=== PATIENT | female | born 1980 | race Caucasian/White ===

== ENCOUNTER 2018-07-17 23:29 | Emergency (ER) | payer MEDICAID, OTHER ==
[2018-07-17 23:37] VITALS: BMI 23.9
[2018-07-18 01:30] LABS: BASO # 0.1 K/uL (0.0-0.2); BASO % 0.8 % (0.0-2.0); EOS # 0.1 K/uL (0.0-0.7); EOS % 1.6 % (0.0-4.0); HEMOGLOBIN 12.2 g/dL (11.0-16.0); LYMPH # 1.9 K/uL (1.0-4.3); LYMPH % 22.5 % (20.0-40.0); MEAN CELL VOLUME 93.3 fL (81.0-99.0); MEAN CORPUSCULAR HEMOGLOBIN 31.6 pg (27.0-31.0); MEAN CORPUSCULAR HGB CONC 33.8 g/dL (33.0-37.0); MEAN PLATELET VOLUME 9.2 fL (7.2-11.7); MONO # 0.8 K/uL (0.0-0.8); MONO % 9.2 % (0.0-10.0); NEUT # 5.6 K/uL (1.8-7.0); NEUT % 65.9 % (50.0-75.0); RBC 3.86 Mil/uL (3.80-5.20); RED CELL DISTRIBUTION WIDTH 13.4 % (11.5-14.5); WHITE BLOOD COUNT 8.5 K/uL (4.8-10.8)
[2018-07-18 01:30] LABS: SQUAMOUS EPITHIAL 3 /hpf (0-5); URINE BILIRUBIN NEGATIVE (NEGATIVE); URINE BLOOD 1+ (NEGATIVE); URINE CLARITY Clear (Clear); URINE COLOR Yellow (YELLOW); URINE GLUCOSE (UA) NORMAL (Normal); URINE LEUKOCYTE ESTERASE TRACE Leu/uL (Negative); URINE PROTEIN NEGATIVE (NEGATIVE); URINE UROBILINOGEN NORMAL mg/dL (0.2-1.0)
[2018-07-18 01:37] LABS: ALB/GLOB RATIO 1.3 (1.0-2.1); ALBUMIN 3.9 g/dL (3.5-5.0); ALT/SGPT 29 U/L (9-52); AST/SGOT 21 U/L (14-36); BLOOD UREA NITROGEN 20 mg/dL (7-17); GFR NON-AFRICAN AMERICAN > 60
[2018-07-18 01:42] LABS: BARBITURATES, UR NEGATIVE (NEGATIVE); BENZODIAZEPINES, UR NEGATIVE (NEGATIVE); OPIATES, UR NEGATIVE (NEGATIVE); PHENCYCLIDINE, UR NEGATIVE (NEGATIVE)
[2018-07-18 02:24] VITALS: BP 100/59; PULSE 73; RESP 18; TEMP 98.5; O2SAT 100
--- NOTE | 2018-07-18 02:30 | C.PDOC ---
History Of Present Illness 38 year old female is brought to the ED for evaluation of possible suicidal ideation. Patient however denies being suicidal while in the ED and states she was just upset after an argument with her significant other. Patient denies HI, hallucinations, other injuries. Chief Complaint (Nursing): Psychiatric Evaluation History Per: Patient History/Exam Limitations: no limitations Onset/Duration Of Symptoms: Hrs Current Symptoms Are (Timing): Still Present Suicide/Self Injury Attempted (Context): None Modifying Factor(s): None Associated Symptoms: Anger, Suicidal Thoughts. denies: Depression, Suicidal Plan Recent travel outside of the [place]: No Additional History Per: Patient Past Medical History Reviewed: Historical Data, Nursing Documentation, Vital Signs Vital Signs: Last Vital Signs Temp 98.5 F 07/18/18 02:23 Pulse 73 07/18/18 02:23 Resp 18 07/18/18 02:23 BP 100/59 L 07/18/18 02:23 Pulse Ox 100 07/18/18 02:23 - Medical History PMH: Anxiety Denies: Depression, Diabetes, Hepatitis, HIV, HTN, Seizures, Sexually Transmitted Disease Surgical History: Cholecystectomy - [facility] Procedures PSYCHIA INTERV/EVAL NEC (05/28/14) Family History: States: Unknown Family Hx - Social History Hx Tobacco Use: No Hx Alcohol Use: No Hx Substance Use: No - Immunization History Hx Tetanus Toxoid Vaccination: No Hx Influenza Vaccination: No Hx Pneumococcal Vaccination: No Review Of Systems Constitutional: Negative for: Fever, Chills Cardiovascular: Negative for: Chest Pain Respiratory: Negative for: Shortness of Breath Gastrointestinal: Negative for: Nausea, Vomiting, Abdominal Pain Skin: Negative for: Rash Neurological: Negative for: Weakness, Numbness Psych: Positive for: Suicidal ideation. Negative for: Depression Physical Exam - Physical Exam Appears: Non-toxic, No Acute Distress Skin: Normal Color, Warm, Dry Head: Atraumatic, Normacephalic Eye(s): bilateral: Normal Inspection Neck: Normal ROM, Supple Chest: Symmetrical Cardiovascular: Rhythm Regular Respiratory: Normal Breath Sounds, No Rales, No Rhonchi, No Wheezing Gastrointestinal/Abdominal: Soft, No Tenderness, No Guarding, No Rebound Extremity: Normal ROM, No Tenderness, No Swelling Neurological/Psych: Oriented x3, Normal Speech, Normal Cognition Gait: Steady ED Course And Treatment - Laboratory Results Result Diagrams: 07/18/18 01:22 07/18/18 01:22 O2 Sat by Pulse Oximetry: 100 (ON RA) Pulse Ox Interpretation: Normal Medical Decision Making Medical Decision Making: Plan: * Labs * UA * 1:1 Obs Patient was evaluated by crisis and case was discussed with Dr. Dodson who states patient is safe for D/C and will have follow up with [facility] Disposition Discussed With Dr.: Yeny Dodson - Disposition Referrals: [facility] [Outside] Disposition: HOME/ ROUTINE Disposition Time: 02:29 Condition: STABLE Instructions: Generalized Anxiety Disorder (DC) Forms: [employer] (Nepalese) - POA Present On Arrival: None - Clinical Impression Clinical Impression: Anxiety disorder - Scribe Statement The provider has reviewed the documentation as recorded by the Scribe Rip Will All medical record entries made by the Scribe were at my direction and pers onally dictated by me. I have reviewed the chart and agree that the record accurately reflects my personal performance of the history, physical exam, medical decision making, and the department course for this patient. I have also personally directed, reviewed, and agree with the discharge instructions and disposition.
== END 2018-07-18 02:41 | disposition home or self-care (01) ==
LOC: C.ER 23:29
DX: F41.9 Anxiety disorder, unspecified (principal)

== ENCOUNTER 2018-08-09 07:44 | Emergency (ER) | payer OTHER ==
[2018-08-09 07:44] VITALS: BMI 23.9
[2018-08-09 07:57] VITALS: O2SAT 100
[2018-08-09] MEDS ORDERED: Sodium Chloride 0.9% 1,000 ML IV ONE (08:16)
--- NOTE | 2018-08-09 08:32 | C.PDOC ---
History Of Present Illness 38 yo female w/o significant PMHx come in accompanied by father for evaluation of nausea, multiple episodes of non-bloody vomiting since today 2 AM, mild epigastric pain. Denies fever, recent illness or travel, CP, SOB, palpittaion, diarrhea, back pain, UTI sx, denies drug use. Appears sick, vomiting. Time Seen by Provider: 08/09/18 07:52 Chief Complaint (Nursing): Abdominal Pain History Per: Patient Past Medical History Reviewed: Historical Data, Nursing Documentation, Vital Signs Vital Signs: Last Vital Signs Temp 98.6 F 08/09/18 07:54 Pulse 82 08/09/18 07:54 Resp 18 08/09/18 07:54 BP 120/70 08/09/18 07:54 Pulse Ox 100 08/09/18 07:54 - Medical History PMH: Anxiety Denies: Depression, Diabetes, Hepatitis, HIV, HTN, Seizures, Sexually Transmitted Disease Surgical History: Cholecystectomy, - [facility] Procedures PSYCHIA INTERV/EVAL NEC (05/28/14) Family History: States: Unknown Family Hx - Social History Hx Tobacco Use: No Hx Alcohol Use: No Hx Substance Use: No - Immunization History Hx Tetanus Toxoid Vaccination: No Hx Influenza Vaccination: No Hx Pneumococcal Vaccination: No Review Of Systems Except As Marked, All Systems Reviewed And Found Negative. Constitutional: Negative for: Fever, Chills ENT: Negative for: Throat Pain, Throat Swelling Cardiovascular: Negative for: Chest Pain, Palpitations Respiratory: Negative for: Cough, Shortness of Breath, Wheezing Gastrointestinal: Positive for: Nausea, Vomiting, Abdominal Pain. Negative for: Diarrhea, Melena, Hematochezia, Hematemesis Genitourinary: Negative for: Dysuria Musculoskeletal: Negative for: Neck Pain, Back Pain Neurological: Negative for: Weakness, Numbness Physical Exam - Physical Exam Appears: Well, Non-toxic, No Acute Distress Skin: Normal Color, Warm, Dry Head: Normacephalic Eye(s): bilateral: PERRL Nose: No Flaring, No Discharge Oral Mucosa: Moist Throat: No Erythema Neck: Trachea Midline, Supple Cardiovascular: Rhythm Regular Respiratory: No Decreased Breath Sounds, No Accessory Muscle Use, No Stridor, No Wheezing Gastrointestinal/Abdominal: Soft, Tenderness (mild epigastric), No Distention, No Guarding Back: No CVA Tenderness Extremity: Normal ROM, No Deformity, No Swelling Neurological/Psych: Oriented x3, Normal Speech ED Course And Treatment - Laboratory Results Result Diagrams: 08/09/18 08:40 08/09/18 08:40 Lab Interpretation: Abnormal Urine POC: Negative O2 Sat by Pulse Oximetry: 100 Pulse Ox Interpretation: Normal - CT Scan/US CT A/P Other Rad Studies (CT/US): Radiology Report Reviewed CT/US Interpretation: IMPRESSION: Small bowel wall thickening concerning for enteritis. Too small to characterize hepatic hypodensities; statistically likely cysts or hemangiomas. Cholecystectomy. Tiny probable right renal cyst. Progress Note: Pt was OBS in ed for 3 hours and reports moderate improvement in sx. Pt was able tolerate PO well in ED. On re-eval, pt is afebrile, hemodynamicaly stable. Non-toxic. Ambulatory in ED with stable agit. neck: Supple, (-) meningeal sign. Lungs: CTA B/L, BS equal B/L. CVS: (+)S1S2, reg. Abd: benign, (-) guarding, (-) rebound, (-) localized tenderness. back: (-) CVA tenderness. Blood work review, mild leukocytosis with left shift. Chemistry, UA- no acute abnoramlities. CT A/P review- enteritis, no other acute abnormalities noted. Pt was given Cipro/Flagy. Pt advised on course of ds. ref. to f/u with PMD, GI in 2-3 days for re-eavl. return if any new changes. Disposition Counseled Patient/Family Regarding: Studies Performed, Diagnosis, Need For Followup, Rx Given - Disposition Referrals: [facility] [Outside] Donovan Lal MD [Staff Provider] - Disposition: HOME/ ROUTINE Disposition Time: 10:38 Condition: STABLE Additional Instructions: Encourage fluids BRAT diet- banana, rice, apple sauce, toast take medication as prescribed follow up with PMD, GI in 2-=3 days for re-evaluation. return to ED if any worsening or new changes. Prescriptions: Ciprofloxacin [Cipro] 1 tab PO BID #14 tab metroNIDAZOLE [Flagyl] 500 mg PO BID #14 tab Ondansetron HCl [Zofran] 4 mg PO BID #10 tablet Instructions: Nausea and Vomiting, Adult (DC) Forms: [employer] (Haitian) - Clinical Impression Clinical Impression: Nausea, Vomiting, Enteritis
[2018-08-09] MEDS ORDERED: Sodium Chloride 0.9% 1,000 ML ONE (08:38)
[2018-08-09 08:44] LABS: BASO % 0.2 % (0.0-2.0); EOS % 0.1 % (0.0-4.0); HEMOGLOBIN 13.4 g/dL (11.0-16.0); LYMPH # 0.3 K/uL (1.0-4.3); LYMPH % 2.3 % (20.0-40.0); MEAN CELL VOLUME 93.7 fL (81.0-99.0); MEAN CORPUSCULAR HEMOGLOBIN 32.1 pg (27.0-31.0); MEAN CORPUSCULAR HGB CONC 34.3 g/dL (33.0-37.0); MEAN PLATELET VOLUME 9.5 fL (7.2-11.7); MONO # 0.5 K/uL (0.0-0.8); MONO % 3.1 % (0.0-10.0); NEUT # 14.2 K/uL (1.8-7.0); NEUT % 94.3 % (50.0-75.0); PLATELET COUNT 184 K/uL (130-400); RBC 4.18 Mil/uL (3.80-5.20); RED CELL DISTRIBUTION WIDTH 13.4 % (11.5-14.5)
[2018-08-09 08:52] LABS: WHITE BLOOD COUNT 15.1 K/uL (4.8-10.8)
[2018-08-09 09:07] LABS: HCG,QUALITATIVE URINE NEGATIVE (NEGATIVE)
[2018-08-09 09:11] LABS: SQUAMOUS EPITHIAL 3 /hpf (0-5); URINE BACTERIA RARE (<OCC); URINE BILIRUBIN NEGATIVE (NEGATIVE); URINE BLOOD 3+ (NEGATIVE); URINE CLARITY Hazy (Clear); URINE COLOR Yellow (YELLOW); URINE GLUCOSE (UA) NORMAL (Normal); URINE LEUKOCYTE ESTERASE TRACE Leu/uL (Negative); URINE PROTEIN NEGATIVE (NEGATIVE); URINE UROBILINOGEN NORMAL mg/dL (0.2-1.0)
[2018-08-09 09:19] LABS: ALB/GLOB RATIO 1.3 (1.0-2.1); ALBUMIN 4.5 g/dL (3.5-5.0); ALT/SGPT 29 U/L (9-52); AST/SGOT 28 U/L (14-36); BLOOD UREA NITROGEN 19 mg/dL (7-17); CALCIUM 8.7 mg/dl (8.6-10.4); GFR NON-AFRICAN AMERICAN > 60; LIPASE 81 U/L (23-300)
[2018-08-09 09:29] LABS: BARBITURATES, UR NEGATIVE (NEGATIVE); BENZODIAZEPINES, UR NEGATIVE (NEGATIVE); OPIATES, UR NEGATIVE (NEGATIVE); PHENCYCLIDINE, UR NEGATIVE (NEGATIVE)
[2018-08-09 09:31] LABS: LYMPHOCYTE 3 % (20-40); MONOCYTE 2 % (0-10); NEUTROPHIL 95 % (50-75); PLATELET ESTIMATE NORMAL (NORMAL); TOTAL CELLS COUNTED 100
[2018-08-09] MEDS ORDERED: Iodixanol 320 MG/ML 100 ML BOTTLE IV ONE (09:34)
--- NOTE | 2018-08-09 11:13 | CT ---
Date of service: 08/09/2018 PROCEDURE: CT Abdomen and Pelvis with contrast HISTORY: vomiting, abd. pian COMPARISON: None available TECHNIQUE: Contrast dose: 100 mL Visipaque IV Radiation dose: Total exam DLP = 255.96 mGy-cm. This CT exam was performed using one or more of the following dose reduction techniques: Automated exposure control, adjustment of the mA and/or kV according to patient size, and/or use of iterative reconstruction technique. FINDINGS: LOWER THORAX: No visible consolidation, pleural effusion, or pneumothorax. Partially imaged bilateral breast prosthesis. LIVER: Too small to characterize hepatic hypodensities; statistically likely cysts or hemangiomas. GALLBLADDER AND BILE DUCTS: Cholecystectomy. PANCREAS: Unremarkable. SPLEEN: Unremarkable. ADRENALS: Unremarkable. KIDNEYS AND URETERS: The kidneys enhance symmetrically. No hydronephrosis or obstructing calculus identified. Tiny probable right renal cyst. VASCULATURE: No aortic aneurysm. No atherosclerotic calcification or mural plaque present. BOWEL: Stomach is nondistended. Lack of oral contrast limits evaluation for bowel pathology. Thick-walled loops of small bowel raise concern for enteritis. Fluid-filled APPENDIX: The presumed appendix appears within normal limits of caliber. No secondary signs of acute appendicitis. PERITONEUM: No significant free fluid. No definite free air. LYMPH NODES: No bulky adenopathy identified. BLADDER: Unremarkable. REPRODUCTIVE: The uterus is present. IUD. BONES: No acute osseous abnormality is detected. OTHER FINDINGS: None. IMPRESSION: Small bowel wall thickening concerning for enteritis. Too small to characterize hepatic hypodensities; statistically likely cysts or hemangiomas. Cholecystectomy. Tiny probable right renal cyst.
[2018-08-09 11:50] VITALS: BP 105/65; PULSE 80; RESP 17; TEMP 98
== END 2018-08-09 11:48 | disposition home or self-care (01) ==
LOC: C.ER 07:44
DX: K52.9 Noninfective gastroenteritis and colitis, unspecified (principal); R11.2 Nausea with vomiting, unspecified
CPT/HCPCS: 74177; 80053; 80324; 80345; 80346; 80349; 80353; 80358; 80361; 81001; 83690; 83992; 84703; 85025; 96361; 96374; 96375; 99285; J2405; J2765; J7030; Q9967